=== PATIENT | female | born 1960 | race Two or more races ===

== ENCOUNTER 2020-02-27 07:15 | Inpatient (IN) | payer OTHER ==
[~2020-02-27] VITALS: Ht 157.5 cm; Wt 60.3 kg
[2020-02-27] MEDS ORDERED: ZESTRIL20 MG PO (10:23)
[2020-02-27] MEDS ORDERED: ZANAFLEX4 M1 PO (10:24)
[2020-02-27] MEDS ORDERED: ULTRAM50 MG PO (10:25)
[2020-02-27] MEDS ORDERED: VENTOLIN HFA18 GM IN (10:26)
[2020-02-27] MEDS ORDERED: OMEPRAZ PO (10:26)
[2020-03-04] MEDS ORDERED: GABAPENTIN600 MG (09:28)
[2020-03-04] MEDS ORDERED: ANORO ELLIPTA1 EACH (09:28)
[2020-03-04] MEDS ORDERED: DICLOFENAC SODI75 MG (09:28)
[2020-03-04] MEDS ORDERED: ACID REDUCER20 M1 (09:29)
== END 2020-03-08 10:42 | DRG 470 ==
LOC: O/R 03-04 06:25 → SURG 03-04 06:25 → RECOVERY 03-04 07:00 → SURG 03-04 14:23
PROVIDERS: ADMIT Orthopaedic Surgery; ATTEND Orthopaedic Surgery
PROC: 0SRC0J9 Replacement of Right Knee Joint with Synthetic Substitute, Cemented, Open Approach (ICD-10-PCS; principal; 2020-03-04 07:00)
DX: M17.11 Unilateral primary osteoarthritis, right knee (principal); D62 Acute posthemorrhagic anemia; I10 Essential (primary) hypertension; Z72.0 Tobacco use; Z20.828 Contact with and (suspected) exposure to other viral communicable diseases